=== PATIENT | female | born 1980 | race African-American/Black ===

== ENCOUNTER 2018-11-01 20:57 | Emergency (ER) | payer OTHER ==
[~2018-11-01] VITALS: Ht 165.1 cm; Wt 98.0 kg
[2018-11-01] MEDS ORDERED: IBUPROFEN 800MG TABLET PO ONE (23:00)
[2018-11-01] MEDS ORDERED: DEXAMETHASONE 1 MG/ML ORAL SYR PO ONE (23:00)
[2018-11-01 23:21] VITALS: BP 137/76
== END 2018-11-01 23:22 | disposition home or self-care (01) ==
LOC: ER 20:57
DX: J02.0 Streptococcal pharyngitis (principal); H66.91 Otitis media, unspecified, right ear; H69.81 Other specified disorders of Eustachian tube, right ear; I10 Essential (primary) hypertension; F17.200 Nicotine dependence, unspecified, uncomplicated
CPT/HCPCS: 99283; J8540